=== PATIENT | male | born 1970 | race Caucasian/White ===

== ENCOUNTER 2019-06-15 00:29 | Emergency (ER) | payer SELFPAY ==
[2019-06-15] MEDS ORDERED: Lidocaine 2% PF 5 ML VIAL ONE (01:49)
[2019-06-15] MEDS ORDERED: Bacitracin 1 PK ONE (02:30)
[2019-06-15] MEDS ORDERED: Adacel (T-DAP) 0.5 ML SYRINGE ONE (02:38)
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
--- NOTE | 2019-06-15 11:43 | RAD ---
RIGHT HAND 3 VIEWS: Date: 06/15/2019 No fracture was appreciated. All bones appeared intact. IMPRESSION: No acute findings. POS: HOME
== END 2019-06-15 02:50 | disposition home or self-care (01) ==
LOC: BURERS 00:29
DX: S02.841A Fracture of lateral orbital wall, right side, initial encounter for closed fracture (principal); S02.2XXA Fracture of nasal bones, initial encounter for closed fracture; S06.9X9A Unspecified intracranial injury with loss of consciousness of unspecified duration, initial encounter; S01.111A Laceration without foreign body of right eyelid and periocular area, initial encounter; F10.129 Alcohol abuse with intoxication, unspecified; Z23 Encounter for immunization; F17.200 Nicotine dependence, unspecified, uncomplicated; Y04.0XXA Assault by unarmed brawl or fight, initial encounter
CPT/HCPCS: 12052; 70450; 70486; 72125; 90471; 90715; J2001